=== PATIENT | female | born 1970 | race Caucasian/White ===

== ENCOUNTER → 2020-05-01 08:09 | Outpatient (BNVA) | payer BC, SELFPAY | PROVIDERS: Visit Provider Counselor Professional | DX: F90.0 Attention-deficit hyperactivity disorder, predominantly inattentive type (principal); F33.1 Major depressive disorder, recurrent, moderate; Z63.0 Problems in relationship with spouse or partner | CPT/HCPCS: 90791 ==

== ENCOUNTER → 2020-08-29 11:17 | Outpatient (BNVA) | payer BC, SELFPAY | PROVIDERS: PCP Nurse Practitioner Family; Referring Provider Nurse Practitioner Family; Visit Provider Specialist | DX: G31.84 Mild cognitive impairment of uncertain or unknown etiology (principal); M54.2 Cervicalgia; R51.9 Headache, unspecified; F98.8 Other specified behavioral and emotional disorders with onset usually occurring in childhood and adolescence | CPT/HCPCS: 99204 ==